=== PATIENT | female | born 2000 | race Caucasian/White ===

== ENCOUNTER 2022-02-13 16:25 | Emergency (ER) | payer BC, SELFPAY ==
--- NOTE | 2022-02-13 16:34 | ED.ALLEREA ---
HPI - Allergic Reaction General Chief complaint: Allergic Reaction Stated complaint: hives Time Seen by Provider: 02/13/22 16:35 Source: patient Mode of arrival: ambulatory Limitations: no limitations History of Present Illness HPI narrative: 21-year-old female presents with intermittent hives to bilateral arms, legs, trunk for 2 days. Denies use of any new food, clothing, hygiene products. Recently finished amoxicillin for strep, denies similar rash reaction to penicillins. No difficulty swallowing or breathing. Speaking in full sentences. Took 1 dose of Benadryl. All systems reviewed and negative except as noted above. Related Data Allergies Allergy/AdvReac Type Severity Reaction Status Date / Time No Known Allergies Allergy Verified 02/13/22 16:35 Review of Systems Review of Systems: CONSTITUTIONAL: Denies fever, chills, or sweats. EYES: Denies visual changes, redness, or discharge. ENT: Denies rhinorrhea, congestion, sore throat, or otalgia. CARDIOVASCULAR: Denies chest pain, palpitations, or edema. RESPIRATORY: Denies cough or dyspnea. GASTROINTESTINAL: Denies abdominal pain, nausea, vomiting, or diarrhea. GENITOURINARY: Denies dysuria or hematuria. SKIN: Reports rash and itching. MUSCULOSKELETAL: Denies back pain, joint pain, or myalgia. NEUROLOGIC: Denies headache, numbness, or weakness. PSYCHIATRIC: Denies anxiety or depression. All other systems reviewed are negative, except as documented in HPI. PMFSH Comments At time of signature, agree with nursing past medical, surgical, social and family history. There is no relevant family history pertinent to the presenting complaint. Exam Narrative: GENERAL: This is a well-nourished, well-developed patient, in no apparent distress. HEAD: normocephalic, atraumatic. EYES: PERRL. Sclera clear/white. Vision is grossly intact. EARS: External ears normal. NOSE: External nose normal NECK: Neck supple, non-tender without lymphadenopathy, masses or thyromegaly. CARDIOVASCULAR: Regular rate and rhythm without murmurs, gallops, or rubs. RESPIRATORY: Clear to auscultation. Breath sounds equal bilaterally. No wheezes, rales, or rhonchi. Delete SKIN: warm, Dry, intact with light, good texture and turgor. Erythematous eyes do bilateral forearms, right side abdomen. NEURO: awake, alert, and oriented to person, place and time. There were no obvious focal neurologic abnormalities. EXTREMITIES: No joint tenderness, effusion, or edema noted. Night Course Course Level of Care: Express Care Visit Vital Signs Vital signs: Vital Signs Temperature 36.8 C 02/13/22 16:36 Pulse Rate 83 02/13/22 16:36 Respiratory Rate 16 02/13/22 16:36 Blood Pressure 129/74 02/13/22 16:36 Pulse Oximetry 100 02/13/22 16:36 Temperature 36.8 C 02/13/22 16:36 Pulse Rate 83 02/13/22 16:36 Respiratory Rate 16 02/13/22 16:36 Blood Pressure 129/74 02/13/22 16:36 Pulse Oximetry 100 02/13/22 16:36 Reviewed MDM - Allergic Reaction MDM Narrative Medical decision making narrative: Mild hives noted. Recommend follow-up with PCP if not improving. Patient is aware of diagnosis, understands and agrees to treatment plan. Anticipatory guidance given. Patient agrees to follow-up as directed and is aware of reasons to seek care at the emergency department. Portions of this record may have been created with voice recognition software Differential Diagnosis Differential diagnosis: Likely anaphylaxis, allergic reaction, contact dermatitis, adverse reaction to drug and urticaria Discharge Plan Discharge Clinical Impression: Hives Patient Disposition: Home, Self-Care Condition: Stable Instructions: Antibiotic Form, Urticaria (ED) Additional Instructions: Take medications as prescribed. May continue Benadryl as needed for itching. Follow-up with your primary care physician if hives are not improving. Prescriptions: New methylprednisolone [Medrol ([facility])
[2022-02-13 16:36] VITALS: BP 129/74; PULSE 83; RESP 16; TEMP 36.8; O2SAT 100
== END 2022-02-13 16:47 | disposition home or self-care (01) ==
PROVIDERS: Emergency Provider Nurse Practitioner Family
DX: L50.9 Urticaria, unspecified (principal)
CPT/HCPCS: 99213; G0463

== ENCOUNTER 2022-02-18 15:10 | Emergency (ER) | payer BC, SELFPAY ==
[2022-02-18 15:18] VITALS: BP 128/84; PULSE 84; RESP 16; TEMP 37.3; O2SAT 100
--- NOTE | 2022-02-18 15:26 | ED.URI ---
HPI - URI/Sore Throat General Chief Complaint: Upper Respiratory Infection Stated Complaint: sore throat, white spots on throat Time Seen by Provider: 02/18/22 15:26 History of Present Illness HPI Narrative: 21 y/o female presents for c/o sore throat. Patient reports 2 weeks ago she was prescribed 10 days of Amoxicillin for a probable strep infection. She completed the abx on 02/09 and on 02/12 noticed a rash, and subsequently was prescribed a steroid dose stephane and famotidine on 02/13 that she completed yesterday. Patient reports that her throat started hurting again yesterday and noticed that it was red again. Denies fever, cough, n/v/d. Related Data Allergies Allergy/AdvReac Type Severity Reaction Status Date / Time amoxicillin Allergy Rash Verified 02/18/22 15:16 Review of Systems Review of Systems: CONSTITUTIONAL: Denies body aches, fever, chills, or sweats. EYES: Denies visual changes, redness, or discharge. ENT: Denies rhinorrhea, congestion, or otalgia. CARDIOVASCULAR: Denies chest pain, palpitations, or edema. RESPIRATORY: Denies dyspnea. GASTROINTESTINAL: Denies abdominal pain, nausea, vomiting, or diarrhea. SKIN: Denies rash, itching, or wounds. Exam Narrative: GENERAL: well-appearing EYES: conjunctivae clear ENT: Mucous membranes moist. TMs pearly elizabeth with normal light reflex bilaterally; no tragal tenderness. Oropharynx erythematous without lesions. Tonsils enlarged 2+ with minimal exudate. No drooling, no hoarseness, no trismus, uvula midline. No tripod positioning, hot potato voice, or soft palate swelling. NECK: Supple. No lymphadenopathy CHEST: Clear to auscultation, breath sounds equal. No respiratory distress, speaks in full sentences. HEART: Regular rate and rhythm. No murmur heard. SKIN: Warm, dry, no rash. NEURO: Alert and oriented x3. Course Course Emergency Course: Patient is aware of diagnosis, understands and agrees to treatment plan. Anticipatory guidance given. Patient agrees to follow-up as directed and is aware of reasons to seek care at the emergency department. Portions of this record may have been created with voice recognition software Level of Care: Express Care Visit Vital Signs Vital signs: Vital Signs Temperature 99.1 F 02/18/22 15:18 Pulse Rate 84 02/18/22 15:18 Respiratory Rate 16 02/18/22 15:18 Blood Pressure 128/84 02/18/22 15:18 Pulse Oximetry 100 02/18/22 15:18 Oxygen Delivery Room Air 02/18/22 15:18 Temperature 99.1 F 02/18/22 15:18 Pulse Rate 84 02/18/22 15:18 Respiratory Rate 16 02/18/22 15:18 Blood Pressure 128/84 02/18/22 15:18 Pulse Oximetry 100 02/18/22 15:18 Oxygen Delivery Room Air 02/18/22 15:18 MDM - URI/Sore Throat MDM Narrative Medical decision making narrative: Strep result reviewed with pt. Advise supportive treatments. Patient is appropriate for outpatient treatment and follow-up. Discussed s/s to report to ED. Differential Diagnosis Differential diagnosis: Likely upper respiratory infection, viral infection and pharyngitis Lab Data Labs: Strep Screen Presumptive Negative *(Reference Range: Negative)* Discharge Plan Discharge Clinical Impression: Acute tonsillitis Patient Disposition: Home, Self-Care Condition: Stable Instructions: Antibiotic Form, Tonsillitis (ED) Additional Instructions: Rapid strep swab was negative today You will be notified in a few days if the culture comes back positive for strep, and appropriate antibiotics will be called in at that time. if symptoms are due to a viral illness, it is not treated with antibiotics. Viral symptoms can be present for up to 10-14 days. Tylenol every 8 hours as needed for pain/fever Soft foods, cool liquids, warm tea. Gargle with warm saltwater twice a day. Chloraseptic spray and throat lozenges. Rest and stay hydrated. --Follow up with your PCP if symptoms
== END 2022-02-18 15:41 | disposition home or self-care (01) ==
PROVIDERS: Emergency Provider Nurse Practitioner Family
DX: J03.90 Acute tonsillitis, unspecified (principal)
CPT/HCPCS: 87081; 87880; 99213; G0463

== ENCOUNTER 2022-05-16 15:17 | Emergency (ER) | payer BC, SELFPAY ==
[2022-05-16 15:28] VITALS: BP 131/88; PULSE 130; RESP 20; TEMP 38.7; O2SAT 100
--- NOTE | 2022-05-16 15:30 | ED.URI ---
HPI - URI/Sore Throat General Chief Complaint: Upper Respiratory Infection Stated Complaint: sore throat, fatigue, chills Time Seen by Provider: 05/16/22 15:35 Source: patient and RN notes reviewed Mode of arrival: ambulatory Limitations: no limitations History of Present Illness HPI Narrative: 21-year-old female presents concern for sore throat, chills, body aches started yesterday. 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 She reports she took Tylenol this morning before work. MD elicited complaint: sore throat Related Data Allergies Allergy/AdvReac Type Severity Reaction Status Date / Time amoxicillin Allergy Rash Verified 05/16/22 15:26 Review of Systems Review of Systems: CONSTITUTIONAL: Report malaise, chills. Denies sweats or fever. EYES: Denies visual changes, redness, or discharge. ENT: Denies rhinorrhea, congestion, sinus pain, otalgia. Reports sore throat. CARDIOVASCULAR: Denies chest pain, palpitations, or edema. RESPIRATORY: Denies cough. Denies dyspnea. GASTROINTESTINAL: Denies abdominal pain, nausea, vomiting, diarrhea SKIN: Denies rash or itching. MUSCULOSKELETAL: Reports myalgia. NEUROLOGIC: Denies headache. All systems reviewed & are unremarkable except as noted in HPI and below PMFSH Comments At time of signature, agree with nursing past medical, surgical, social and family history. There is no relevant family history pertinent to the presenting complaint Exam Narrative: GENERAL: Well-appearing, well-nourished, and in no acute distress. HEAD: Normocephalic EYES: PERRLA, conjunctivae clear ENT: Nares clear, no discharge. Mucous membranes moist. TM pearly elizabeth with sharp light reflex bilaterally; no tragal tenderness. Oropharynx erythematous without lesions. Tonsils enlarged and without exudate, no drooling, no hoarseness, no trismus, uvula midline. NECK: Supple. No lymphadenopathy CHEST: Clear to auscultation, breath sounds equal. No wheezing, rhonchi, rales, or stridor. No respiratory distress, speaks in full sentences. HEART: Regular rate and rhythm. No murmur heard. SKIN: Warm, dry, no rash. NEURO: Alert and oriented x3. PSYCH: Normal mood and affect Course Course Emergency Course: Patient is aware of diagnosis, understands and agrees to treatment plan. Anticipatory guidance given. Patient agrees to follow-up as directed and is aware of reasons to seek care at the emergency department. Portions of this record may have been created with voice recognition software Level of Care: Express Care Visit Vital Signs Vital signs: Vital Signs Temperature 101.7 F H 05/16/22 15:28 Pulse Rate 130 H 05/16/22 15:28 Respiratory Rate 20 05/16/22 15:28 Blood Pressure 131/88 05/16/22 15:28 Pulse Oximetry 100 05/16/22 15:28 Temperature 101.7 F H 05/16/22 15:28 Pulse Rate 130 H 05/16/22 15:28 Respiratory Rate 20 05/16/22 15:28 Blood Pressure 131/88 05/16/22 15:28 Pulse Oximetry 100 05/16/22 15:28 Reviewed. MDM - URI/Sore Throat MDM Narrative Medical decision making narrative: Differential diagnosis considered: Frias virus, strep pharyngitis, allergic rhinitis, upper respiratory tract infection, sinusitis, rhinosinusitis, nasopharyngitis. viral pharyngitis, otitis media, otitis externa, pneumonia, bronchitis, viral cough syndrome, viral syndrome, and influenza. Exam findings show no acute concerns or changes; patient is non-toxic appearing and is in no distress. Patient is appropriate for outpatient treatment and follow-up. Lab Data Attestation: I reviewed the patient's lab results. Critical Care Time Critical Care Time Critical Care Time: No Discharge Plan Discharge Clinical Impression: Acute streptococcal pharyngitis Patient Disposition: Home, Self-Care Condition: Stable Instructions: Antibiotic Form, Strep Throat (ED) Additional Instructions: -Take the medication as prescribed. Throw away the toothbrush
== END 2022-05-16 15:47 | disposition home or self-care (01) ==
PROVIDERS: Emergency Provider Nurse Practitioner
DX: J02.0 Streptococcal pharyngitis (principal)
CPT/HCPCS: 87880; 99213; G0463

== ENCOUNTER 2022-06-19 15:04 | Emergency (ER) | payer BC, SELFPAY ==
[2022-06-19 15:10] VITALS: BP 125/90; PULSE 81; RESP 16; TEMP 36.5; O2SAT 100
--- NOTE | 2022-06-19 15:10 | ED.URI ---
HPI - URI/Sore Throat General Chief Complaint: Upper Respiratory Infection Stated Complaint: sore throat Time Seen by Provider: 06/19/22 15:10 Source: patient and RN notes reviewed History of Present Illness HPI Narrative: Patient is a 21-year-old female who presents to urgent care with complaints of a sore throat for the last couple days. Patient was treated for strep on a tele visit with azithromycin on June 09 and from our facility with cefdinir on May 16. 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 Denies any known fever, nausea or vomiting. No other acute complaints. No acute distress noted. Patient aware of the plan of care. Some parts of this dictation were generated by voice recognition software and may contain typographical and/or grammatical inaccuracies. Related Data Allergies Allergy/AdvReac Type Severity Reaction Status Date / Time amoxicillin Allergy Rash Verified 06/19/22 15:20 Review of Systems Review of Systems: CONSTITUTIONAL: Denies fever, chills, or sweats. EYES: Denies visual changes, redness, or discharge. ENT: Denies rhinorrhea, congestion, otalgia. Reports of sore throat CARDIOVASCULAR: Denies chest pain, palpitations, or edema. RESPIRATORY: Denies cough or dyspnea. GASTROINTESTINAL: Denies abdominal pain, nausea, vomiting, or diarrhea. GENITOURINARY: Denies dysuria or hematuria. SKIN: Denies rash or itching. MUSCULOSKELETAL: Denies back pain, joint pain, or myalgia. NEUROLOGIC: Denies headache, numbness, or weakness. All other systems reviewed are negative, except as documented in HPI. PMFSH Comments At the time of my signature, I reviewed and agree with the nursing past medical, surgical, social, and family history. There is no relevant family history pertinent to the patient complaint. Exam Narrative: GENERAL: This is a well-nourished, well-developed patient, in no apparent distress. HEAD: normocephalic, atraumatic. EYES: PERRL. Sclera clear/white. Vision is grossly intact. EARS: External ears normal, auditory canals clear and without drainage, TMs normal without perforation. Hearing grossly intact. NOSE: External nose normal with no obvious nasal discharge, nares without redness, no rhinorrhea. THROAT: Mucous membranes moist, moderate erythema to posterior pharynx with mild to moderate bilateral tonsillar edema with bilateral exudate moderate postnasal drainage NECK: Neck supple, non-tender without lymphadenopathy CARDIOVASCULAR: Regular rate and rhythm without murmurs, gallops, or rubs. RESPIRATORY: Clear to auscultation. Breath sounds equal bilaterally. No wheezes, rales, or rhonchi. SKIN: warm, intact with no suspicious lesions or rash, good texture and turgor. NEURO: awake, alert, and oriented to person, place and time. There were no obvious focal neurologic abnormalities. EXTREMITIES: No clubbing, cyanosis, or edema. Course Course Level of Care: Express Care Visit Vital Signs Vital signs: Vital Signs Temperature 97.7 F 06/19/22 15:10 Pulse Rate 81 06/19/22 15:10 Respiratory Rate 16 06/19/22 15:10 Blood Pressure 125/90 06/19/22 15:10 Pulse Oximetry 100 06/19/22 15:10 Oxygen Delivery Room Air 06/19/22 15:10 Temperature 97.7 F 06/19/22 15:10 Pulse Rate 81 06/19/22 15:10 Respiratory Rate 16 06/19/22 15:10 Blood Pressure 125/90 06/19/22 15:10 Pulse Oximetry 100 06/19/22 15:10 Oxygen Delivery Room Air 06/19/22 15:10 Reviewed MDM - URI/Sore Throat MDM Narrative Medical decision making narrative: Reviewed lab results with the patient. She is aware that she is positive for strep. Advised to complete the oral antibiotic regimen as prescribed. Be sure to eat and drink with the medication. Use Tylenol/ibuprofen as needed. Be aware you are considered contagious until you have been on the medication for 24 hours and remained fever free. Would recommend a daily antihistamine such as Zyrtec or Claritin. Co
== END 2022-06-19 16:02 | disposition home or self-care (01) ==
PROVIDERS: Emergency Provider Nurse Practitioner Family
DX: J02.0 Streptococcal pharyngitis (principal)
CPT/HCPCS: 87880; 99213; G0463